=== PATIENT | male | born 1990 | race Caucasian/White ===

== ENCOUNTER → 2022-10-27 12:50 | Outpatient (BNVA) | payer MEDICAID, SELFPAY | PROVIDERS: PCP Family Medicine; Visit Provider Internal Medicine Gastroenterology | DX: R10.13 Epigastric pain (principal) | CPT/HCPCS: 99202 ==

== ENCOUNTER 2022-12-16 11:18 | Day surgery (SDC) | payer MEDICAID, SELFPAY ==
--- NOTE | 2022-12-15 10:35 | HO.ANESPROP2 ---
Documented by User: Nargis Shelby NP 12/15/22 10:36 HPI - Anesthesia Eval Consult details Narrative: 32yo M for Upper Endoscopy and Colonoscopy [facility] Active Problems Active Problems: All Active Problems (Updated 10/27/22 @ 13:30 by Nabila Lopez MD) Epigastric abdominal pain (Acute) Surgical History Surgical History Hx of amputation Hx of wisdom tooth extraction Social History Social History Alcohol intake: never Patient Tobacco Use Status: Former Tobacco user Quit Date: 5 years Tobacco use type: Smokeless Tobacco Use of substances other than those prescribed or required for medical reasons: No Substance Use Type: Marijuana Are you DNR?: No Advance Directives: No Advance Directives Information Provided: Yes Meds Allergies Allergy/AdvReac Type Severity Reaction Status Date / Time tree nuts Allergy Mild Unknown Uncoded 10/27/22 12:57 Home Medications Medication Instructions Recorded Confirmed Last Taken Type pantoprazole 40 mg tablet,delayed 40 mg PO DAILY 10/27/22 Unknown History release Exam Exam Date and Time: December 15, 2022 1035 Assessment and Plan Assessment Anesthesia Assessment: Chart Reviewed Documented by User: Tatyana Bolton MD 12/16/22 12:04 [facility] Family History Family history of problems with anesthesia: No Surgical History Surgical History Hx of amputation Hx of wisdom tooth extraction History of Problems with Anesthesia: No Social History Social History Alcohol intake: never Patient Tobacco Use Status: Former Tobacco user Quit Date: 5 years Tobacco use type: Smokeless Tobacco Use of substances other than those prescribed or required for medical reasons: No Substance Use Type: Marijuana Are you DNR?: No Advance Directives: No Advance Directives Information Provided: Yes Meds Allergies Allergy/AdvReac Type Severity Reaction Status Date / Time tree nuts Allergy Mild Unknown Uncoded 10/27/22 12:57 Home Medications Medication Instructions Recorded Confirmed Last Taken Type pantoprazole 40 mg tablet,delayed 40 mg PO DAILY 10/27/22 Unknown History release Exam Airway Mallampati Class: II TM Dist: >3cm Neck ROM: Full Heart: rrr Lungs: cta Assessment and Plan Assessment Anesthesia Assessment: Anesthesia Plan Discussed Final Anesthetic Review Family History of Problems with Anesthesia: No History of Problems with Anesthesia: No NPO: Yes ASA Class: III Final Preanesthetic Review: No Changes in Pt Med Stat, Meds/Allgs Chart Reviewed, Consent Obtained/Reviewed and Anes Risks/Benef Reviewed Patient Risk: Low Procedure Risk: Low Anesthetic Plan Anesthetic Plan: MAC: Disposition: Standard PACU
[2022-12-16 11:49] VITALS: BMI 30.4
[2022-12-16 11:59] VITALS: BP 108/74; PULSE 74; RESP 18; TEMP 36.7; O2SAT 97
[2022-12-16 12:06] VITALS: BMI 30.4
[2022-12-16] MEDS: Lactated Ringers 1,000 ML 100 ML IVCONT (12:09)
--- NOTE | 2022-12-16 12:24 | MHC.SHP ---
Pre-Procedural Eval Section A Date of Service: 12/16/22 Section B Chief Complaint: Crohn's disease,IBS,epigastric pain, Relevant Family History (Specify if Yes): No Relevant Social History: Other (specify) (THC) Present Medications: see Short Stay Collaborative assessment Medical History: Significant History (asthma) History of Previous Operations: Relevant previous surgery/procedure and date(s) (wisdom tooth extraction ) Allergies: Allergies Allergy/AdvReac Type Severity Reaction Status Date / Time tree nuts Allergy Mild Unknown Uncoded 10/27/22 12:57 Review of Systems Sugical H&P ROS: Negative: Constitution, Cardiovascular, Respiratory, Neurological, Psychiatric, Hem-Onc, Allergic/Immunologic, Gastrointestinal, Genitourinary, Musculoskeletal, Integumentary, Endocrine and Eyes/Ears/Nose/Throat Exam Surgical H&P Exam: Normal: HEENT, Normal: Heart, Normal: Lungs, Normal: Extremities, Normal: Abdomen, Normal: Skin and Normal: Neurological Plan Diagnosis/Plan: Unchanged I have reviewed the history and physical and performed a pertinent physical examination on my patient. No changes have occurred unless specified. Time Spent With Patient Time: Total time managing care of this patient today ____ minutes.
--- NOTE | 2022-12-16 12:33 | P.OP_ITS ---
Operative Note Operative Note Date of Service: 12/16/22 Narrative: Operative Information Procedure Description: EGD, Colonoscopy Indication: abdominal pain, nausea Anesthesia: MAC FLEXIBLE TRANSORAL UPPER GASTROINTESTINAL ENDOSCOPY AND COLONOSCOPY PROCEDURE NOTE UPPER ENDOSCOPY Consent: Indications for the procedure and potential complications of bleeding, perforation, reaction to medications and missed diagnosis were discussed with the patient and informed consent was obtained. Instrument: Olympus GIF H 190 J mid size upper endoscope Monitoring: Vital signs and clinical assessment, continuous EKG monitoring, Pulse oximetry, Carbon Dioxide monitoring and blood pressure monitoring were done throughout the procedure. Procedure: The patient was placed in the left lateral decubitis position and pre-procedure medications were administered and a bite block was placed. The endoscope was inserted into the mouth and advanced under direct vision to the third part of duodenum. A careful inspection was made as the upper endoscope was withdrawn including a retroflexed examination of the proximal stomach; Findings and interventions are described below. Findings: Larynx:normal Esophagus: GE junction at 45 cm, diaphragm hiatus at 45 cm, bogginess and erythema at GJE consistent with reflux damage, bx taken from GEJ, distal and proximal esophagus Stomach: Normal mucosa. Biopsies were obtained. Grade 2 flap valve on retroflexed examination of the cardia. Duodenum: Normal bulb and descending duodenum, bx taken Intervention: Biopsies as noted above COLONOSCOPY Instrument: Olympus variable stiffness pediatric scope 190L Colonoscopy Monitoring: Vital signs and clinical assessment, continuous EKG monitoring, Pulse oximetry, Carbon Dioxide monitoring and blood pressure monitoring were done throughout the procedure. Colon withdrawal time was 15 minutes. Procedure: The patient was placed in the left lateral decubitis position and pre-procedure medications were administered. After a digital rectal examination of the ano-rectum, the video colonoscope was inserted into the rectum and advanced through the colon to the cecum/TI. The colonoscope was slowly withdrawn in a retrograde panoramic fashion and the colon mucosa was carefully examined including a retroflexed view of the rectum. Findings and interventions are described below. Procedure Difficulty: medium Findings: Terminal Ileum-nodular follicular hyperplasia noted, bx taken bx taken from right, left and rectum --there was no colonic peristalsis noted Cecum:normal Ascending Colon: normal Transverse Colon -normal Descending Colon:normal Sigmoid Colon: normal Rectum: Retroflexion with medium sized internal hemorrhoids, grade I Anorectum - normal Colon preparation: [place] Bowel Preparation Scale Right colon; 2 Transverse colon: 3 Left colon; 3 (0 = Unprepared colon segment with mucosa not seen due to solid stool that cannot be cleared. 1 = Portion of mucosa of the colon segment seen, but other areas of the colon segment not well seen due to staining, residual stool and/or opaque liquid. 2 = Minor amount of residual staining, small fragments of stool and/or opaque liquid, but mucosa of colon segment seen well. 3 = Entire mucosa of colon segment seen well with no residual staining, small fragments of stool or opaque liquid) Impression and Post Procedure Diagnosis: Endoscopy Findings: esophagitis Colonoscopy Findings: colonic inertia internal hemorrhoids Plan: Await Pathology results Repeat Colonoscopy aged 45 or earlier if clinically indicated High fiber diet leaflet avoid straining at stool, epsom salts and sitz bath, anusol supps or cream consider using motegrity if sx more suggestive of colonic inertia Above findings were reviewed with the patient and relevant handouts were provided if indicated.
[2022-12-16 13:20] VITALS: BP 129/71; PULSE 58; RESP 20; TEMP 36.2; O2SAT 100
[2022-12-16 13:35] VITALS: BP 114/83; PULSE 52; RESP 18; TEMP 36.2; O2SAT 99
== END 2022-12-16 14:24 | disposition home or self-care (01) ==
PROVIDERS: PCP Student in an Organized Health Care Education/Training Program; Visit Provider Internal Medicine Gastroenterology
PROC: (CPT 45380; principal; 2022-12-16 14:10)
DX: K50.90 Crohn's disease, unspecified, without complications (principal); K63.89 Other specified diseases of intestine; K59.01 Slow transit constipation; K64.0 First degree hemorrhoids; R10.13 Epigastric pain; K20.80 Other esophagitis without bleeding; K44.9 Diaphragmatic hernia without obstruction or gangrene; Z79.899 Other long term (current) drug therapy; Z89.029 Acquired absence of unspecified finger(s); F17.210 Nicotine dependence, cigarettes, uncomplicated; F12.90 Cannabis use, unspecified, uncomplicated
CPT/HCPCS: 45380; 43239; 88305; 88342

== ENCOUNTER → 2022-12-16 11:18 | Outpatient (BNV) | payer MEDICAID, SELFPAY | PROVIDERS: PCP Student in an Organized Health Care Education/Training Program; Visit Provider Internal Medicine Gastroenterology | DX: R10.9 Unspecified abdominal pain (principal); R11.0 Nausea; K20.90 Esophagitis, unspecified without bleeding; K64.8 Other hemorrhoids; K59.01 Slow transit constipation | CPT/HCPCS: 43239; 45380 ==

== ENCOUNTER 2023-02-13 10:17 | Outpatient (AMB) | payer MEDICAID, SELFPAY ==
[2023-02-13 10:23] VITALS: BP 121/67; PULSE 79; BMI 26.6
--- NOTE | 2023-02-13 10:23 | A.OFFVIS_ITS ---
Intake Vital Signs 02/13/23 10:23 Height 6 ft 4 in Weight 218 lb 4.122 oz BMI 26.6 BP 121/67 Blood Pressure Location Lt brachial Position Sitting Pulse 79 Intake Visit Reasons: 4 mnth follow up Intake Note: Greg presents in the office as a 4 month follow up. CC: He states that he has been having some more stomach issues that he feels is leading to something else. He went to the ED for heart palpatations and at the end of the day he felt dizzy and weak but was told that nothing was wrong. His PCP thinks it may be Gastroenteritis and he would like to be tested for that. Also has concerns for his gall bladder. 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: No Allergies tree nuts Allergy (Mild, Uncoded 02/13/23 10:26) Unknown HPI 4 mnth follow up HPI Details 32 yr old m here for f/u RECAP from index visit: He had trouble eating food, unless v plain, anything oily or spicy gives him cramps he was c/o nausea, vomiting feels like someone trying to rip out insides pain can be 9/10 in severity pain is epigastrium, can go into the back and lower abdomen he has been having chest pain, went to ED several times, goes into the right side and worse with nausea attacks occur every day, doesn;t really go away he can have tenesmus and incomplete evacuation he conway sbeen taking pantoprazole for 6 weeks with some relif of symptoms--feels it has helped 60% can be associated with cold sweats symptoms going on for 9 yrs he had bad anxiety takes nsaids infrequently, 2-3 times week, ibuprofen he is vaping, using weed as well EGD/[place] --12/2022 Endoscopy Findings: esophagitis Colonoscopy Findings: colonic inertia internal hemorrhoids Path:lymphoid aggregates, reflux changes in esophagus INTERIM: he was in ED last week due to heart palpitations and had aversion to food for 1 week, appetite is improving but still getting palpitations he has a mild pain in the left chest, varies Stomach symptoms improved but maybe due to improved diet as well, taking pantoprazole 40 mg daily does not have vomiting he can have constipation, takes a while to pass stools he has tightness and constriction below the ribs, can be anytime EXAM: GENERAL: The patient is well developed and nontoxic. VITAL SIGNS:see workflow HEENT: Nonicteric sclerae, PERRLA, EOMI. Oropharynx clear. Moist mucous membranes. Conjunctivae appear well perfused. No thyroid mass. CHEST: Chest wall is nontender. HEART: Regular rate and rhythm without murmurs. LUNGS: Clear to auscultation bilaterally. ABDOMEN: Soft, positive bowel sounds, nontender, no organomegaly.no flank tenderness SKIN: No rash, no excessive bruising, petechiae, or purpura. NEUROLOGIC: Cranial nerves II-XII intact without motor/sensory deficit. A/P: 1/ Palpitaitons, uncertain if related to any of his GI issues, e.g POTS ot other dysautonomia 2/ Some improvement in GI sx with PPI an d diet change, but not 100% better, lymphoid aggregates on path ? subacute IBD PLAN: 1/ GES 2/ US abdo 3/ check fecal [place] and trial of apriso 4/ refer cardiology for symptomatic palp itations 5/ might consider trial of motegrity at some point and maybe sitz marker test [facility] Surgical History (Updated 02/13/23 @ 10:27 by DENTON Abdullahi) History of esophagogastroduodenoscopy (EGD) Hx of colonoscopy Hx of wisdom tooth extraction Hx of amputation Social History Alcohol intake: never Patient Tobacco Use Status: Former Tobacco user Quit Date: 5 years Tobacco use type: Smokeless Tobacco Substance Use Type: Marijuana Physical Exam Vital Signs: Last Vital Signs Pulse 79 02/13/23 10:23 BP 121/67 02/13/23 10:23 BMI result Body Mass Index 26.6 Assessment & Plan Assessment & Plan (1) Epigastric abdominal pain: Code(s): R10.13 - Epigastric pain (2) Palpitation: Code(s): R00.2 - Palpitations Orders: Orders NM gastric emptying study Today R68.81 - Early satiety Lactoferrin, Fecal, Quant. Today K51.50 - Left sided colitis without complications US abdomen complete Today R00.2 - Palpitations, R10.13 - Epigastric pain Referrals Cardiology Referral R00.2 - Palpitations, R10.13 - Epigastric pain Medications: New mesalamine ER (Apriso) 1.5 grams (4 x 0.375 gram) PO QAM 120 caps 0RF Coding Level of Care Code Est Pt Level 4 (68150) Diagnoses Epigastric abdominal pain R10.13 Palpitation R00.2
== END 2023-02-13 10:48 | disposition home or self-care (01) ==
PROVIDERS: PCP Family Medicine; Visit Provider Internal Medicine Gastroenterology
DX: R10.13 Epigastric pain (principal); R00.2 Palpitations
CPT/HCPCS: 99214

== ENCOUNTER → 2023-02-13 10:17 | Outpatient (BNVA) | payer MEDICAID, SELFPAY | PROVIDERS: PCP Family Medicine; Visit Provider Internal Medicine Gastroenterology | DX: R10.13 Epigastric pain (principal); R00.2 Palpitations | CPT/HCPCS: 99212 ==

== ENCOUNTER 2023-02-18 09:22 | Outpatient (REF) | payer MEDICAID, SELFPAY ==
[2023-02-25 17:14] LABS: Lactoferrin, Fecal, Quant. 15.45 mcg/mL (<7.25)
== END 2023-02-18 09:23 | disposition home or self-care (01) ==
LOC: HO.LNP 09:22
PROVIDERS: Visit Provider Internal Medicine Gastroenterology
DX: K51.50 Left sided colitis without complications (principal)
CPT/HCPCS: 83631

== ENCOUNTER → 2023-03-10 07:51 | Outpatient (REF) | payer MEDICAID, SELFPAY ==
--- NOTE | ~2023-03-10 | NM_ITS ---
EXAMINATION: RADIONUCLIDE SOLID FOOD GASTRIC EMPTYING 4-HOUR STUDY CLINICAL INFORMATION: Early satiety. COMPARISON: None. TECHNIQUE: A standard meal consisting of 4 oz of Egg Beaters brand tagged with 1 mCi Tc-99m Sulfur Colloid, 8 oz water and 2 slices of toast with jelly was administered orally to the patient. Images were obtained using a dual head gamma camera in the anterior and posterior projections over of the stomach immediately post ingestion and at hourly intervals up to 3 hours post ingestion. Images were not obtained at 4 hours due to the minimal retention at 3 hours. The anterior and posterior counts at each time interval were averaged using the geometric mean and expressed as percentage of the immediate post ingestion counts. FINDINGS: There is good visualization of activity in the stomach immediately post ingestion. As the study progresses, there is good clearance of activity from the stomach and visualization of progressively increasing small bowel activity. By the end of the study, there is almost no retention noted in the stomach. Retention in the stomach at each time interval was: 1 hour 44% (normal 37%-90%) 2 hours 24% (normal 30%-60%) 3 hours 8% 4 hours (Not Obtained) (normal 0%-10%) NM/NM gastric emptying study IMPRESSION: Normal solid food gastric emptying study.
== END ==
LOC: HO.NUCMED 07:51
PROVIDERS: PCP Family Medicine; Visit Provider Internal Medicine Gastroenterology
DX: R68.81 Early satiety (principal)
CPT/HCPCS: 78264; A9541

== ENCOUNTER 2023-03-13 08:50 | Outpatient (REF) | payer MEDICAID, SELFPAY ==
--- NOTE | ~2023-03-13 | US_ITS ---
EXAMINATION: US ABDOMEN COMPLETE CLINICAL INFORMATION: Epigastric pain. Rule out gallbladder disease. COMPARISON: None available. TECHNIQUE: Real-time imaging of the abdominal viscera. Limited visualization due to bowel gas. FINDINGS: PANCREAS: Limited visualization of pancreatic tail and head. Imaged portion of pancreatic body is unremarkable. ABDOMINAL AORTA: Nonaneurysmal. INFERIOR VENA CAVA: Visualized portions are normal. LIVER: Unremarkable. Limited visualization. GALLBLADDER: No gallstones. No gallbladder wall thickening. COMMON BILE DUCT: Normal in caliber measuring 0.25 cm in diameter. RIGHT KIDNEY: Mild fullness of the renal collecting system. No renal calculi. The kidney measures 11.8 cm in maximum dimension. LEFT KIDNEY: Mild fullness of the renal collecting system. No renal calculi. The kidney measures 11.7 cm in maximum dimension. SPLEEN: Normal. The spleen measures 12.6 cm in maximum dimension. FREE FLUID: None. US/US abdomen complete IMPRESSION: Mild fullness of the bilateral renal collecting systems. No renal calculi. CT scan could be considered for further evaluation.
== END 2023-03-13 08:51 | disposition home or self-care (01) ==
LOC: HO.US 08:50
PROVIDERS: PCP Family Medicine; Visit Provider Internal Medicine Gastroenterology
DX: R10.13 Epigastric pain (principal); R00.2 Palpitations
CPT/HCPCS: 76700

== ENCOUNTER 2023-06-16 07:24 | Outpatient (REF) | payer MEDICAID, SELFPAY ==
--- NOTE | ~2023-06-16 | CT_ITS ---
EXAMINATION: CT ABDOMEN AND PELVIS WITHOUT CONTRAST CLINICAL INFORMATION: Renal congestion. COMPARISON: Abdominal ultrasound 04/12/2023 TECHNIQUE: Multidetector volumetric imaging was performed of the abdomen and pelvis without intravenous contrast. Sagittal and coronal reformatted images were obtained on the technologist's workstation. This CT examination was performed using dose optimization techniques as appropriate, variously including the following: *Automated exposure control *Adjustment of mA and/or kV according to patient size (this includes techniques or standardized protocols for targeted exams where dose is matched to indication/reason for exam; i.e. extremities or head) *Use of iterative reconstruction technique DLP: 657.56 mGy-cm FINDINGS: LUNG BASES: The visualized lung bases are unremarkable. LIVER, GALLBLADDER, AND BILIARY TREE: The noncontrast liver is normal in size and contour. No biliary ductal dilatation is present. The gallbladder is unremarkable with no evidence of radiopaque gallstones, gallbladder wall thickening, or obvious pericholecystic inflammatory changes. PANCREAS: Unremarkable SPLEEN: Unremarkable ADRENAL GLANDS: Unremarkable KIDNEYS AND URETERS: The kidneys are normal in size, shape, and attenuation. Punctate nonobstructing mid pole right renal calculus. No hydronephrosis. No perinephric stranding. GASTROINTESTINAL TRACT: Small and large bowel loops are of normal caliber. No small bowel obstruction. Appendix is within normal limits. ABDOMINAL WALL: No significant hernia is appreciated. LYMPH NODES: Numerous subcentimeter mesenteric lymph nodes are nonspecific. VASCULAR: Normal caliber abdominal aorta. BLADDER: No bladder calculus. PELVIC VISCERA: Unremarkable. OSSEOUS STRUCTURES: No destructive bone lesions. CT/CT kidney stone IMPRESSION: Punctate nonobstructing right renal calculus. No hydronephrosis. Numerous subcentimeter mesenteric lymph nodes are nonspecific.
== END 2023-06-16 07:25 | disposition home or self-care (01) ==
LOC: HO.CT 07:24
PROVIDERS: PCP Family Medicine; Visit Provider Internal Medicine Gastroenterology
DX: N28.9 Disorder of kidney and ureter, unspecified (principal)
CPT/HCPCS: 74176

== ENCOUNTER 2023-06-18 15:54 | Outpatient (REF) | payer MEDICAID, SELFPAY | END 2023-06-18 15:55 | disposition home or self-care (01) | LOC: HO.LAB 15:54 | PROVIDERS: Visit Provider Internal Medicine Gastroenterology | DX: Z13.89 Encounter for screening for other disorder (principal) ==

== ENCOUNTER 2023-06-19 09:48 | Outpatient (AMB) | payer MEDICAID, SELFPAY ==
[2023-06-19 10:00] VITALS: BP 123/79; PULSE 98; BMI 29.9
--- NOTE | 2023-06-19 10:00 | A.OFFVIS_ITS ---
Intake Vital Signs 06/19/23 10:00 Height 6 ft 4 in Weight 246 lb BMI 29.9 BP 123/79 Blood Pressure Location Rt brachial Position Sitting Pulse 98 Pulse Source Monitor Intake Visit Reasons: 4 month follow up Intake Note: Patient states still having bloating when eating not healthy/ fried foods. No other GI concerns at the moment. 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 Accompanied by: Spouse Allergies fluoxetine [From Prozac] Allergy (Verified 06/19/23 10:07) Facial Swelling tree nuts Allergy (Mild, Uncoded 02/13/23 10:26) Unknown HPI 4 month follow up HPI Details 32 yr old m here for f/u RECAP from index visit: He had trouble eating food, unless v plain, anything oily or spicy gives him cramps he was c/o nausea, vomiting feels like someone trying to rip out insides pain can be 9/10 in severity pain is epigastrium, can go into the back and lower abdomen he has been having chest pain, went to ED several times, goes into the right side and worse with nausea attacks occur every day, doesn;t really go away he can have tenesmus and incomplete evacuation he con[place] sbeen taking pantoprazole for 6 weeks with some relif of symptoms--feels it has helped 60% can be associated with cold sweats symptoms going on for 9 yrs he had bad anxiety takes nsaids infrequently, 2-3 times week, ibuprofen he is vaping, using weed as well EGD/[place] --12/2022 Endoscopy Findings: esophagitis Colonoscopy Findings: colonic inertia internal hemorrhoids Path:lymphoid aggregates, reflux changes in esophagus GES: nml CT: small mesenteric LN, no obstruction INTERIM: he saw cardiology and had holter, results not back yet, has echo pending as well appetite fair he sees a difference with apriso, if doesnt take it he gets more cramps and bloating, he is trying to stop smoking, taking NRT taking pantoprazole 40 mg daily which still works constipation is better, avoids food triggers EXAM: GENERAL: The patient is well developed and nontoxic. VITAL SIGNS:see workflow HEENT: Nonicteric sclerae, PERRLA, EOMI. Oropharynx clear. Moist mucous membranes. Conjunctivae appear well perfused. No thyroid mass. CHEST: Chest wall is nontender. HEART: Regular rate and rhythm without murmurs. LUNGS: Clear to auscultation bilaterally. ABDOMEN: Soft, positive bowel sounds, nontender, no organomegaly.no flank tenderness SKIN: No rash, no excessive bruising, petechiae, or purpura. NEUROLOGIC: Cranial nerves II-XII intact without motor/sensory deficit. A/P: 1/ Palpitaitons, uncertain if related to any of his GI issues, seeing cardiology 2/ Some improvement in GI sx with PPI an d diet change and apriso, repeat lactoferrin pending , ? subacute IBD PLAN: 1/ await lactoferrin, if higher or worse then switch to budesonide, 2/ if lower then cont apriso and recheck again in 3 month or so 3/ cont smoking cessation PFSH Surgical History (Updated 02/13/23 @ 10:27 by DENTON Abdullahi) History of esophagogastroduodenoscopy (EGD) Hx of colonoscopy Hx of wisdom tooth extraction Hx of amputation Social History Alcohol intake: never Patient Tobacco Use Status: Former Tobacco user Quit Date: 5 years Tobacco use type: Smokeless Tobacco Substance Use Type: Marijuana Assessment & Plan Assessment & Plan (1) IBD (inflammatory bowel disease): Code(s): K52.9 - Noninfective gastroenteritis and colitis, unspecified Plan: A/P: 1/ Palpitaitons, uncertain if related to any of his GI issues, seeing cardiology 2/ Some improvement in GI sx with PPI and diet change and apriso, repeat lactoferrin pending , ? subacute IBD PLAN: 1/ await lactoferrin, if higher or worse then switch to budesonide, 2/ if lower then cont apriso and recheck again in 3 month or so 3/ cont smoking cessation Coding Level of Care Code Est Pt Level 3 (18769) Diagnoses IBD (inflammatory bowel disease) K52.9
== END 2023-06-19 10:34 | disposition home or self-care (01) ==
PROVIDERS: PCP Family Medicine; Visit Provider Internal Medicine Gastroenterology
DX: K52.9 Noninfective gastroenteritis and colitis, unspecified (principal)
CPT/HCPCS: 99213

== ENCOUNTER → 2023-06-19 09:48 | Outpatient (BNVA) | payer MEDICAID, SELFPAY | PROVIDERS: PCP Family Medicine; Visit Provider Internal Medicine Gastroenterology ==

== ENCOUNTER 2023-06-19 09:57 | Outpatient (REF) | payer MEDICAID, SELFPAY ==
[2023-06-27 17:39] LABS: Lactoferrin, Fecal, Quant. <6.25 mcg/mL (<7.25)
== END 2023-06-19 09:58 | disposition home or self-care (01) ==
LOC: HO.LNP 09:57
PROVIDERS: Visit Provider Internal Medicine Gastroenterology
DX: K51.50 Left sided colitis without complications (principal); K52.9 Noninfective gastroenteritis and colitis, unspecified
CPT/HCPCS: 83631; 99212

== ENCOUNTER 2023-12-18 09:50 | Outpatient (AMB) | payer BC, SELFPAY ==
--- NOTE | 2023-12-18 09:56 | A.OFFVIS_ITS ---
Vital Signs 12/18/23 10:01 Height 6 ft 4 in Weight 253 lb 1.451 oz BMI 30.8 BP 112/72 Blood Pressure Location Lt brachial Position Sitting Pulse 73 Pulse Source Pulse Oximeter Pulse Oximetry (%) 99 Oxygen Delivery Method Room Air Intake Visit Reasons: 6 month follow up Intake Note: Patient presents to the office today for a 6 month follow up. CC: Pt states he is feeling well and denies any concerns at this time Manager Cardiovascular Required: No Accompanied by: Spouse Allergies fluoxetine [From Prozac] Allergy (Verified 12/18/23 10:04) Facial Swelling tree nuts Allergy (Mild, Uncoded 12/18/23 10:04) Unknown HPI HPI 6 month follow up: Details: 33 yr old m here for f/u RECAP from index visit: He had trouble eating food, unless v plain, anything oily or spicy gives him cramps he was c/o nausea, vomiting feels like someone trying to rip out insides pain can be 9/10 in severity pain is epigastrium, can go into the back and lower abdomen he has been having chest pain, went to ED several times, goes into the right side and worse with nausea attacks occur every day, doesn;t really go away he can have tenesmus and incomplete evacuation he conway sbeen taking pantoprazole for 6 weeks with some relif of symptoms--feels it has helped 60% can be associated with cold sweats symptoms going on for 9 yrs he had bad anxiety takes nsaids infrequently, 2-3 times week, ibuprofen he is vaping, using weed as well EGD/Vaughn --12/2022 Endoscopy Findings: esophagitis Colonoscopy Findings: colonic inertia internal hemorrhoids Path:lymphoid aggregates, reflux changes in esophagus GES: nml CT: small mesenteric LN, no obstruction lactoferrin went from 15 to < 6.25! 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 VITAL SIGNS:see workflow HEENT: Nonicteric sclerae, PERRLA, EOMI. Oropharynx clear. Moist mucous membranes. Conjunctivae appear well perfused. No thyroid mass. CHEST: Chest wall is nontender. HEART: Regular rate and rhythm without murmurs. LUNGS: Clear to auscultation bilaterally. ABDOMEN: Soft, positive bowel sounds, nontender, no organomegaly.no flank tenderness SKIN: No rash, no excessive bruising, petechiae, or purpura. NEUROLOGIC: Cranial nerves II-XII intact without motor/sensory deficit. A/P 1/ subacute IBD, doing v well with mesalamine --will try lialda to see if easier to get and less expensive PLAN: 1/ sent lialda, hopefully will be cheaper, labs going to be done 2/letter given for jury duty due to abdominal symptoms 3/ periodic check on fecal lactoferrin PFSH Surgical History (Updated 02/13/23 @ 10:27 by DENTON Abdullahi) History of esophagogastroduodenoscopy (EGD) Hx of colonoscopy Hx of wisdom tooth extraction Hx of amputation Social History Alcohol intake: never Patient Tobacco Use Status: Former Tobacco user Tobacco use type: Smokeless Tobacco Substance Use Type: Marijuana Physical Exam Vital Signs: Last Vital Signs Pulse 73 12/18/23 10:01 BP 112/72 12/18/23 10:01 Pulse Ox 99 12/18/23 10:01 Oxygen Delivery Method Room Air 12/18/23 10:01 BMI result Body Mass Index 30.8 Assessment & Plan Assessment & Plan (1) IBD (inflammatory bowel disease): Code(s): K52.9 - Noninfective gastroenteritis and colitis, unspecified Category: Medical Plan: see above Medications: New mesalamine (Lialda) 2.4 grams (2 x 1.2 gram) PO DAILY 8 weeks 112 tabs 0RF Coding Level of Care Code Est Pt Level 3 (24683) Diagnoses IBD (inflammatory bowel disease) K52.9
[2023-12-18 10:01] VITALS: BP 112/72; PULSE 73; O2SAT 99; BMI 30.8
== END 2023-12-18 10:29 | disposition home or self-care (01) ==
PROVIDERS: PCP Family Medicine; Visit Provider Internal Medicine Gastroenterology
DX: K52.9 Noninfective gastroenteritis and colitis, unspecified (principal)
CPT/HCPCS: 99213

== ENCOUNTER → 2023-12-18 09:50 | Outpatient (BNVA) | payer BC, SELFPAY | PROVIDERS: PCP Family Medicine; Visit Provider Internal Medicine Gastroenterology ==

== ENCOUNTER 2024-06-24 09:23 | Outpatient (REF) | payer OTHER, SELFPAY ==
[2024-06-24 09:56] LABS: MANUAL DIFF FLAG NO
--- OUTSIDE RECORDS SUMMARY | 2024-06-24 10:01 | XMS_ITS | Encounter Summary ---
Author Organization [employer] Address [address] [facility] [address]t [place] [address] Care Team Providers Care Advanced Analytics Associate Name Role Phone Jon Baker PA-C Primary Care Provider [phone] Encounter Details Date Type Department Care Team (Late st Contact Info) Description 06/21/2024 Refill [id number] [address] [place] [phone] Jon Baker PA-C [address] [place] [address] Tobacco consumption Social History Tobacco Use Types Packs/Day Years Used Date Smoking Tobacco: Former Cigarettes 1.5 7 Smokeless Tobacco: Current Alcohol Use Standard Drinks/Week Comments Not Currently 0 (1 standard drink = 0.6 oz pur e alcohol) Housing Stability Answer Date Recorded What is your housing situation today? I have jean shipman 06/15/[address] you li ve. Do you have problems with any of the following? None of the above 06/15/2024 Food Insecurity Answer Date Recorded Within the past 12 months, y ou worried that your food would run out before you got money to buy more: Never True 06/15/2024 Within the past 12 months,th e food you bought just didn't last and you didn't have enough money to get more: Never True 04/2025 Transportation Answer Date Recorded In the past 12 months, has l ack of transportation kept you from medical appts, meetings, work or from getting things needed for daily living? No 06/15/2024 Intimate Partner Violence Answer Date R ecorded Within the last year, have y ou been afraid of your partner or ex-partner? 2 06/15/2024 Within the last year, have y ou been humiliated or emotionally abused in other ways by your partner or ex-partner? 2 Within the last year, have y ou been kicked, hit, slapped, or otherwise physically hurt by your partner or ex-partner? 2 06/15/2024 Within the last year, have y ou been raped or forced to have any kind of sexual activity by your partner or ex-partner? 2 06/15/2024 Utilities Answer Date Recorded In the past 12 months, has t he [employer], gas, oil or water [employer] threatened to shut off services in your home? No 06/15/2024 Depression Answer Date Recorded Patient Health Questionnaire-2 Score 0 06/15/2024 Internet Access Answer Date Recorded Internet Access Q1 Yes 02/08/2024 Internet Access Q2 Not on file 02/08/2024 Sex and Gender Information Value Date Recorded Sex Assigned at Male 07/28/2022 9:02 AM EDT Legal Sex Male 6:22 PM EDT Gender Identity Male 02/28/2022 6:22 PM EDT Sexual Orientation Straight 02/28/2022 6: 22 PM EDT Occupation Industry Job Start Date Job End Date Self Employed Not on file Not on file Not on file documented as of this encounter Miscellaneous Notes * Telephone Encounter - Milla Santacruz - 06/21/2024 4:11 PM EST PCP: Jon Baker PA-C Last in-person office visit: 06/15/2024 Jon Baker PA-C Lab Results Component Value Date BUN 15 08/22/2022 CREATININE 1.1 08/22/2022 EGFRCREATINI 92 08/22/2022 HGBA1C 5.2 08/22/2022 K 3.4 (L) 08/22/2022 Assessment: [x] Protocol passed [] Lab due [] Appointment due Plan: [x] Please refill for 30 days [] Lab [] BMP [] TSH [] A1C [] Appointment due: No future appointments. Comments: Pt is requesting the 14 mg patches since the 7 mg patches are not strong enough. * Telephone Encounter - Ese Sabrina - 06/21/2024 3:30 PM EST Patient would like 14 mg nicotine patches called into pharm documented in this encounter Plan of Treatment Not on file documented as of this encounter Visit Diagnoses Diagnosis Tobacco consumption documented in this encounter Care Teams Advanced Analytics Associate Relationship Specialty Start Date End Date Jon Baker PA-C [address] [place] [id number] PCP - General Family Medicine 03/05/23 documented as of this encounter
--- OUTSIDE RECORDS SUMMARY | 2024-06-24 10:01 | XMS_ITS | Clinical Summary ---
Author Organization [email or web address] Address [address] [place] [address] 7t [place] [address] Care Team Providers Care Field Application Engineer Name Role Phone Jon Baker PA-C Primary Care Provider [phone] Allergies Active Allergy Reactions Criticality Noted Date Comments Other Headache 12/29/2018 Other reaction(s): Hives, headache Cashew Nut Oil Headache 01/07/2023 Medications fluticasone (Flonase) 50 MCG/ACT nasal sprayIndications: Pressure sensation in both ears Administer 1-2 sprays into each nostril in the morning. Shake gently. Before first use, prime pump. After use, clean tip and replace cap. 16 g 2 023 Active hyoscyamine (Anaspaz) 0.125 MG disintegrating tablet DISSOLVE 1 TABLET ON THE TONGUE FOUR TIMES DAILY 023 Active predniSONE (Deltasone) 20 MG tabletIndications :Allergic contact dermatitis due to plant Take 2 tabs by mouth, every morning, for 5 days. 10 tablet 023 Active FLUoxetine (PROzac) 10 MG capsuleIndication s:Anxiety Take 1 capsule (10 mg) by mouth in the morning. 90 capsule 023 Active Apriso 0.375 g 24 hr capsule take 4 capsules by mouth every morning 024 Active pantoprazole (ProtoNix) 40 MG EC tabletIndications :RUQ pain TAKE 1 TABLET BY MOUTH EVERY DAY BEFORE BREAKFAST. DO NOT CRUSH OR CHEW OR SPLIT 90 tablet 2 025 Active nicotine (Nicoderm CQ) 14 MG/24HR patchIndications: Nicotine Dependence Place 1 patch on the skin 1 (one) time each day at the same time. Rotate sites. 28 patch 1 025 2024 Active nicotine (Nicoderm CQ) 14 MG/24HR patchIndications: Nicotine Dependence Place 1 patch on the skin 1 (one) time each day at the same time. Rotate sites. 28 patch 1 024 2024 Discontinued pantoprazole (ProtoNix) 40 MG EC tabletIndications :RUQ pain TAKE 1 TABLET(40 MG) BY MOUTH BEFORE BREAKFAST. DO NOT CRUSH, CHEW, OR SPLIT 90 tablet 2 024 2024 Discontinued nicotine (Nicoderm CQ) 7 MG/24HR patchIndications: Tobacco consumption Place 1 patch on the skin 1 (one) time each day at the same time. Rotate sites. 28 patch 1 025 2024 Discontinued(R eorder (will not trigger notification to Pharmacy)) nicotine (Nicoderm CQ) 7 MG/24HR patchIndications: Tobacco consumption Place 1 patch on the skin 1 (one) time each day at the same time. Rotate sites. 28 patch 1 025 2024 Discontinued Active Problems Problem Noted Date Diagnosed Date Right hand pain 06/15/2024 Assessment & Plan (06/15/2024 4:27 PM EST): 33 y/o adult presents with right 5th finger pain at MCP following an injury sustained about a month ago when hitting the inside handle of a truck door. Right hand dominant. Physical exam demonstrated erythema and edema at 5th finger MCP, difficulty with full flexion. - An X-ray of the hand is necessary to rule out a fracture. The results of the X-ray will guide further management, which may include referral to a hand specialist or conservative treatment. - In the meantime, the patient should continue taking ibuprofen as needed for pain management. Ice and elevation of the hand in the evening are recommended to help reduce swelling. - The patient should monitor for any changes in symptoms, such as increased pain, swelling, or changes in sensation Acute non-recurrent frontal sinusitis 02/08/2024 Assessment & Plan (02/08/2024 10:01 AM EDT): - Patient presented with symptoms of congestion, earache, sharp pain behind the eye. Symptoms have been ongoing for approximately four days, following a week of upper respiratory tract infection symptoms. Physical examination unremarkable. Given the duration of symptoms and the pattern of double worsening, a bacterial sinusitis is suspected. - Prescription of Augmentin for five days. Patient was advised to stop taking the medication if any hypersensitivity, rashes, or other side effects occur. Patient was also advised to continue supportive care with Tylenol as needed. An intranasal steroid was suggested to help with facial pressure and congestion, but the patient declined due to discomfort with nasal sprays. The patient was advised to contact the clinic if symptoms worsen or if high fevers develop. Patient expressed understanding and is in agreement with plan Palpitations 06/04/2023 Overview (06/04/2023): Established with Dr. Osman, Cardiology per notes: Palpitations: most likely isolated PVCs. Plan for zio patch Zio Patch Chest pain: Atypical by description and that it is right-sided, continuous, and pleuritic. Ischemic work up if sxs change. Dyspnea: Unlikely cardiac. TSH, EKG, and Hgb WNL. Plan for ECHO with additional sxs. Tobacco consumption 06/04/2023 Assessment & Plan (06/04/2023 8:34 AM EST): Reviewed best-practice guidelines for cessation with dual NRT with long-acting and short-acting formulations. Patient prefers to use just patches and no lozenges. Opted for 14mg patch via shared decision-making since this dosage helped the patient in the past. Will work to gradually down-titrate dose in 4-6 week increments as tolerated. Reviewed proper use, frequency, and possible side effects. Prescriptions sent to pharmacy. Pt will return in 1 month for follow up. Gastroesophageal reflux disease without esophagi tis 08/29/2022 Chronic abdominal pain 08/29/2022 Overview (06/04/2023): Established with Dr. Lopez in [facility] on 03/2023 demonstrated: Mild fullness of bilateral renal collecting systems. No renal calculi, needs CT for further evaluation. 10/2022: Gastric emptying study: Normal solid food gastric emptying. Endoscopy findings: Esophagitis Colonoscopy: Internal hernias and colonic inertia. Repeat at age 47 Temporomandibular joint disorder 02/07/2022 Fear associated with healthcare 08/20/2021 Encounters Date Type Department Care Team Description 06/21/2024 Orders Only [address] [phone] Jon Baker PA-Krystian Tobacco consumption 06/21/[address] [phone] Jon Baker PA-C Tobacco consumption 06/17/[address] [phone] Jon Baker PA-C RUQ pain 06/15/2024 3:40 PM EST Office Visit [address] [phone] Jon Baker PA-C Right hand pain (Primary Dx); Tobacco consumption 04/15/2024 10:40 AM EST Office Visit [address] [phone] Silvio Woods PA Community acquired pneumonia of right lower lobe of lung (Primary Dx) 04/12/[address] [phone] Jon Baker PA-Krystian from Last 3 Months Immunizations Name Administration Dates Next Due DTaP, Unspecified 11/21/1997, 4,04/15/1993,02/12/1993,12/11/18 93 Hep B, Unspecified 08/02/1993,1992, 993 HiB, unspecified 02/18/1994,04/15/1993, 3,1992 IPV 02/18/1994,07/02/1993,02/12/1993 ,1992 MMR 11/21/1997,10/29/1993 Td (adult), unspecified 12/27/2004 Tdap 12/01/2017,10/14/2016,08/22/2010 Family History Medical History Relation Name Comments Aneurysm Father GI problems Father Lung cancer Maternal Grandfather Breast cancer Maternal Grandmother Endometriosis Mother GI problems Mother Seizures Mother Mental illness Paternal Grandmother Relation Name Status Comments Father Maternal Grandfather Maternal Grandmother Mother Paternal Grandmother Social History Tobacco Use Types Packs/Day Years Used Date Smoking Tobacco: Former Cigarettes 1.5 7 Smokeless Tobacco: Current Tobacco Cessation:Ready to Q uit: Not Asked; Counseling Given: Not Answered Alcohol Use Standard Drinks/Week Comments Not Currently [...] the past 12 months, has t he electric, gas, oil or water company threatened to shut off services in your [...] file Not on file Not on file Last Filed Vital Signs Vital Sign Reading Time Taken Comments Blood Pressure 100/66 06/15/2024 4:02 PM EST Pulse 72 06/15/2024 4:02 PM EST Temperature 36.2 ??C (97.2 ??F) 06/15/2024 4:02 PM ES T Respiratory Rate - - Oxygen Saturation 99% 06/15/2024 4:02 PM EST Inhaled Oxygen Concentration - - Weight 106 kg (234 lb) 06/15/2024 4:02 PM EST Height 190.5 cm (6' 3 ) 02/19/2023 9:09 AM EDT Body Mass Index 29.25 02/19/2023 9:09 AM EDT Plan of Treatment Health Maintenance Due Date Last Done Comments HIV Screening 1992 Lipid Panel 1992 Alcohol/Substance Use Screening 2004 Family Planning (PISQ) 10/09/2007 Hepatitis C Screening 2010 COVID-19 Vaccine ( season) 2024 Influenza Vaccine (#1) 2024 Depression Screening 06/15/2025 06/15/2024, 06/15/19 SDOH Screening 06/15/2025 06/15/2024 Tobacco Screening 06/15/2025 06/15/2024 DTaP/Tdap/Td Vaccines (9 - Td or Tdap) 12/02/2027 12/01/2017, 10/14/2016, 08/22/2010, Additional history exists Zoster Vaccines (1 of 2) 2042 RSV Patients and Patients Aged 60 years or older (1 - 1-dose 75+ series) 10/09/2067 Hepatitis B Vaccines Completed 08/02/1993, 1992, 1992 HIB Vaccines Completed 02/18/1994, 04/03, 02/12/1993, Additional history exists IPV Vaccines Completed 02/18/1994, 03/0 05/1993, 02/12/1993, Additional history exists HPV Vaccines Aged Out No longer eligi ble based on patient's age to complete this topic Hepatitis A Vaccines Aged Out No long er eligible based on patient's age to complete this topic Meningococcal Vaccine Aged Out No austin daisha eligible based on patient's age to complete this topic Pneumococcal Vaccine: Pediatrics (0 to 5 Years) and At-Risk Patients (6 to 49) Years) Aged Out No longer eligible based on patient's age to complete this topic RSV under 20 months Aged Out No longe r eligible based on patient's age to complete this topic Rotavirus Vaccines Aged Out No longer eligible based on patient's age to complete this topic Procedures Procedure Name Priority Date/Time Associated Diagnosis Comments XR HAND 3+ VIEWS RIGHT Routine 06/15/2024 5:01 PM EST Right hand pain from Last 3 Months Results * XR Hand 3+ Views Right (06/15/2024 5:01 PM EST) Anatomical Region Laterality Modality Upper Extremities, Hand Right [facility] 06/15/2024 5:01 PM EST Narrative 06/16/2024 12:16 PM EST Hand Min 3 Views Right, 3 views Reason: right hand pain COMPARISON: None. FINDINGS: No fractures or bone lesions. 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 No arthritic changes. Normal soft tissues. IMPRESSION: No acute abnormality. WSN: [id number] Ordering Physician: Jon Baker Dictated By: ?Jean Pierre Colon MD Dictated Date/Time: ?06/16/24 12:13 p Reviewed By: ?Jean Pierre Colon MD Signed By: ? Jean Pierre Colon MD Signed Date/Time: ? 06/16/24 12:13 pm Transcribed By: ? CSB Transcribed Date/Time: ?06/16/24 12:12 pm Procedure Note Edwina, Image - 06/16/2024 Hand Min 3 Views Right, 3 views Reason: right hand pain COMPARISON: None. FINDINGS: No fractures or bone lesions. There has been prior amputation of thedistal phalanx of the index finger. No arthritic changes. Normal soft tissues. IMPRESSION: No acute abnormality. WSN: [id number] Ordering Physician: Jon Baker Dictated By: Jean Pierre Colon MD Dictated Date/Time: 06/16/24 12:13 p Reviewed By: Jean Pierre Colon MD Signed By: Jean Pierre Cooln MD Signed Date/Time: 06/16/24 12:13 pm Transcribed By: TREVON Transcribed Date/Time: 06/16/24 12:12 pm Jon Baker PA-C IMG XR PROCEDURES Final Result from Last 3 Months Insurance * Guarantor: Greg Perez Account Type Relation to Patient Date of Phone Billing Address Dental Self Care Teams Field Application Engineer Relationship Specialty Start Date End Date Jon Baker PA-C [address] [place] [address] PCP - General Family Medicine 03/05/23
--- OUTSIDE RECORDS SUMMARY | 2024-06-24 10:01 | XMS_ITS | Encounter Summary ---
Author Organization [employer] Address [address] [facility] 7t [place] [address] Care Team Providers Care Product Marketing Director Name Role Phone Jon Baker PA-C Primary Care Provider [phone] Encounter Details Date Type Department Care Team (Late st Contact Info) Description 06/21/2024 Orders Only [facility] [address] [place] [phone] Jon Baker PA-C [address] [place] [address] Tobacco consumption Social History Tobacco Use Types [...] the past 12 months, has t he [employer], gas, oil or water [employer] threatened to shut off services in your [...] on file documented as of this encounter Plan of Treatment Not on file documented as of this encounter Visit Diagnoses Diagnosis Tobacco consumption documented in this encounter Care Teams Product Marketing Director Relationship Specialty Start Date End Date Jon Baker PA-C [address] [place] [address] PCP - General Family Medicine 03/05/23 documented as of this encounter
--- OUTSIDE RECORDS SUMMARY | 2024-06-24 10:01 | XMS_ITS | Encounter Summary ---
Author Organization [employer] Address [address] [facility] [address]t [place] [address] Care Team Providers Care Clinical Education Assistant Name Role Phone Maurizio Martines Unavailable Unavail able Sophia White RN Unavailable Unavailable Jon Baker PA-C Primary Care Provider [phone] Encounter Details Date Type Department Care Team (Late st Contact Info) Description 03/17/2023 Abstract [facility] [address] [place] [phone] Jon Baker PA-C [address] [place] [address] Social History Tobacco Use Types Packs/Day Years Used Date Smoking Tobacco: Never Smokeless Tobacco: Current Alcohol Use Standard Drinks/Week Comments Not Currently 0 (1 standard drink = 0.6 oz pur e alcohol) Housing Stability Answer Date Recorded What is your housing situation today? I have jean shipman 02/16/[address] you li ve. Do you have problems with any of the following? None of the above 02/16/2023 Food Insecurity Answer Date Recorded Within the past 12 months, y ou worried that your food would run out before you got money to buy more: Never True 02/16/2023 Within the past 12 months,th e food you bought just didn't last and you didn't have enough money to get more: Never True Transportation Answer Date Recorded In the past 12 months, has l ack of transportation kept you from medical appts, meetings, work or from getting things needed for daily living? No 02/16/2023 Utilities Answer Date Recorded In the past 12 months, has t he electric, gas, oil or water company threatened to shut off services in your home? No 02/16/2023 Depression Answer Date Recorded Patient Health Questionnaire-2 Score 0 08/22/2022 Sex and Gender Information Value Date Recorded Sex Assigned at Male 07/28/2022 9:02 AM EDT Legal Sex Male 6:22 PM EDT Gender Identity Male 02/28/2022 6:22 PM EDT Sexual Orientation Straight 02/28/2022 6: 22 PM EDT documented as of this encounter Plan of Treatment Not on file documented as of this encounter Visit Diagnoses Not on filedocumented in this encounter Care Teams Clinical Education Assistant Relationship Specialty Start Date End Date Jon Baker PA-C [address] [place] [address] PCP - General Family Medicine 03/05/23 Maurizio Martines LICSW Community Health Worker Case Management 02/17/23 04/01/23 Sophia White, AMANDEEP Registered Nurse Case Management 02/24/23 05/27/23 documented as of this encounter
--- OUTSIDE RECORDS SUMMARY | 2024-06-24 10:01 | XMS_ITS | Encounter Summary ---
Author Organization [employer] Address [address] [facility] 7t [place] [address] Care Team Providers Care Annual Greenhouse Manager Name Role Phone Sherrie Alan Primary Care Provider [phone] Maurizio MartinesSW Unavailable Unavail able Jennifer Dover Primary Care Provider [phone] Sophia White RN Unavailable Unavailable Jon Baker PA-C Primary Care Provider [phone] Encounter Details Date Type Department Care Team (Late st Contact Info) Description 02/13/2023 Abstract [facility] [address] [place] [phone] Sherrie Alan FNP [address] [place] [address] Social History Tobacco Use Types Packs/Day Years [...] on filedocumented in this encounter Care Teams Annual Greenhouse Manager Relationship Specialty Start Date End Date Sherrie Alan FNP PCP - General Family Medicine 01/07/23 02/19/23 Jennifer Dover FNP [address] [place] [address] PCP - General Family Medicine 02/20/23 03/04/23 Jon Baker PA-C [address] [place] [address] PCP - General Family Medicine 03/05/23 Maurizio Martines [facility] Community Health Worker Case Management 02/17/23 04/01/23 Sophia White, RN Registered Nurse Case Management 02/24/23 05/27/23 documented as of this encounter
--- OUTSIDE RECORDS SUMMARY | 2024-06-24 10:01 | XMS_ITS | Encounter Summary ---
Author Organization [employer] Address [address] [facility] 7 [place] [address] Care Team Providers Care Assistant Sales Director Name Role Phone Sophia White RN Unavailable Unavailable Jon Baker PA-C Primary Care Provider [phone] Reason for Visit * Reason Comments Care Management C3-CHW Provider noti fication program closed. Encounter Details Date Type Department Care Team (Late st Contact Info) Description 04/13/2023 Telephone [facility] [address] [place] [address] Maurizio Martines LICSW Care Management (C3-CHW Provider notification program closed. ) Social History Tobacco Use Types Packs/Day Years [...] on filedocumented in this encounter Care Teams Assistant Sales Director Relationship Specialty Start Date End Date Jon Baker PA-C [address] [place] [address] PCP - General Family Medicine 03/05/23 Sophia White, RN Registered Nurse Case Management 02/24/23 05/27/23 documented as of this encounter
--- OUTSIDE RECORDS SUMMARY | 2024-06-24 10:01 | XMS_ITS | Encounter Summary ---
Author Organization [employer] Address [address] [facility] 7t [place] [address] Care Team Providers Care Hvac Controls Technician Name Role Phone Jon Baker PA-C Primary Care Provider [phone] Reason for Visit * Reason Comments Med Refill Encounter Details Date Type Department Care Team ([facility] st Contact Info) Description 06/17/2024 Refill [facility] [address] [place] [address] Jon Baker PA-C [address] [place] [address] RUQ pain Social History Tobacco Use Types Packs/Day Years [...] encounter Miscellaneous Notes * Telephone Encounter - Alejandra Luna - 06/17/2024 8:04 AM EST PCP: Jon Baker PA-C Last in-person office visit: 06/15/2024 Jon Baker PA-C Lab Results Component Value Date BUN 15 08/22/2022 CREATININE 1.1 08/22/2022 EGFRCREATINI 92 08/22/2022 HGBA1C 5.2 08/22/2022 K 3.4 (L) 08/22/2022 Assessment: [] Protocol passed [] Lab due [] Appointment due Plan: [] Please refill for 90 days [] Lab [] BMP [] TSH [] A1C [] Appointment due: No future appointments. Comments: documented in this encounter Plan of Treatment Not on file documented as of this encounter Visit Diagnoses Diagnosis RUQ pain Abdominal pain, right upper quadrant documented in this encounter Care Teams Hvac Controls Technician Relationship Specialty Start Date End Date Jon Baker PA-C [address] [place] [address] PCP - General Family Medicine 03/05/23 documented as of this encounter
--- OUTSIDE RECORDS SUMMARY | 2024-06-24 10:01 | XMS_ITS | Encounter Summary ---
Author Organization [employer] Address [address] [facility] 7t [place] [address] Care Team Providers Care Website Project Manager Name Role Phone Brittanie Martinesmukul HAND ROUNDER Unavailable Unavail able Jennifer Dover Primary Care Provider [phone] Sophia White RN Unavailable Unavailable Jon Baker PA-C Primary Care Provider [phone] Encounter Details Date Type Department Care Team (Late st Contact Info) Description 03/02/2023 Abstract [facility] [address] [facility] [address] [place] [phone] Jennifer Dover FNP [address] [place] [address] Social History Tobacco Use Types Packs/Day Years [...] on filedocumented in this encounter Care Teams Website Project Manager Relationship Specialty Start Date End Date Jennifer Dover FNP [address] [place] [address] PCP - General Family Medicine 02/20/23 03/04/23 Jon Baker PA-C [address] [place] [address] PCP - General Family Medicine 03/05/23 Maurizio Martines LICSW Community Health Worker Case Management 02/17/23 04/01/23 Sophia White, AMANDEEP Registered Nurse Case Management 02/24/23 05/27/23 documented as of this encounter
--- OUTSIDE RECORDS SUMMARY | 2024-06-24 10:01 | XMS_ITS | Encounter Summary ---
Author Organization [employer] Address [address] [place] [address] 7 [place] [address] Care Team Providers Care Meat Slicer Name Role Phone Jon Baker PA-C Primary Care Provider [phone] Reason for Referral * Imaging (Routine) - Closed Specialty Diagnoses / Procedures Referred By Samy t Referred To Contact Radiology Diagnoses Right hand pain Procedures XR Hand 3+ Views Right Jon Baker PA-C [address] [place] [address] Phone: tel: fax: Referral ID Status Reason Start Date Expiration Date Visits Re quested Visits Authorized [id number] Closed 06/15/2024 06/15/2025 1 1 Reason for Visit * Reason Comments Hand Injury Right pinky injury, hurt finger climbing into car. X1m getting pain in the knuckle still bruised Encounter Details Date Type Department Care Team (Late st Contact Info) Description 06/15/2024 3:40 PM EST Office Visit [facility] [address] [place] [phone] Jon Baker PA-C [address] [place] [phone] Right hand pain (Primary Dx); Tobacco consumption Social History Tobacco Use Types [...] on file documented as of this encounter Last Filed Vital Signs Vital Sign Reading Time Taken Comments Blood Pressure 100/66 06/15/2024 4:02 PM EST Pulse 72 06/15/2024 4:02 PM EST Temperature 36.2 ??C (97.2 ??F) 06/15/2024 4:02 PM ES T Respiratory Rate - - Oxygen Saturation 99% 06/15/2024 4:02 PM EST Inhaled Oxygen Concentration - - Weight 106 kg (234 lb) 06/15/2024 4:02 PM EST Height - - Body Mass Index 29.25 02/19/2023 9:09 AM EDT documented in this encounter Progress Notes * Jon Baker PA-C - 06/15/2024 3:40 PM EST This visit documentation was prepared using voice-enabled artificial intelligence software (hoccerclinical notes). Assessment/Plan Problem List Items Addressed This Visit Tobacco consumption Relevant Medications nicotine (Nicoderm CQ) 7 MG/24HR patch Right hand pain - Primary Current Assessment & Plan 33 y/o adult presents with right 5th finger pain at MCP following an injury sustained about a monthago when hitting the inside handle of a truck door. Right hand dominant. Physical exam demonstratederythema and edema at 5th finger MCP, difficulty [...] increased pain, swelling, or changes in sensation Relevant Orders XR Hand 3+ Views Right No follow-ups on file. No future appointments. Subjective Greg Perez is a 33 y.o. male who presents for Hand Injury (Right pinky injury, hurt finger climbing into car. X1m getting pain in the knuckle still bruised). Patient is a 33 y/o adult that presents today for right hand pain. The patient reported injuring their right hand pinky finger about a month ago while climbing into their truck. They described hitting the inside handle of the door with their hand, which resulted in a significant bruise across the knuckle. Since the injury, they have experienced a shooting pain in the joint whenever the finger is bent or bumped. The pain is localized to the knuckle area, although it occasionally extends slightlybeyond this region. The patient initially suspected a dislocation due to their past experiences with finger dislocations, but they noted that the pain persists, leading them to seek medical evaluation. They have not experienced any numbness or tingling in the fingers, nor have they noticed any decrease in underwriting service representative strength. The pain tends to worsen when the finger is bumped or bent too far, and thereis some limitation in the range of motion, particularly when trying to flex or extend the finger. They have taken ibuprofen with mild improvements in pain. They are right hand dominant. Objective BP 100/66 (BP Location: Right arm, Patient Position: Sitting, BP Cuff Size: Large adult) Pulse 72 Temp 97.2 ??F (36.2 ??C) (Temporal) Wt 234 lb (106 kg) SpO2 99% BMI 29.25 kg/m?? Physical Exam Constitutional: Appearance: Normal appearance. Eyes: Extraocular Movements: Extraocular movements intact. Conjunctiva/sclera: Conjunctivae normal. Musculoskeletal: Comments: Right hand: Mild edema and erythema noted at dorsal aspect of MCP at base of 5th finger, difficulty with flexion of 5th finger, underwriting service representative strength and sensation intact, brisk, non-tender with light palpation Skin: General: Skin is warm and dry. Neurological: General: No focal deficit present. Mental Status: He is alert and oriented to person, place, and time. Psychiatric: Mood and Affect: Mood normal. Behavior: Behavior normal. documented in this encounter Miscellaneous Notes * Assessment & Plan Note - Jon Baker PA-C - 06/15/2024 4:27 PM ESTAssociated Problem(s): Right hand pain 33 y/o adult presents with right 5th finger pain at MCP following an injury sustained about a monthago when hitting the inside handle of a truck door. Right hand dominant. Physical exam demonstratederythema and edema at 5th finger MCP, difficulty [...] increased pain, swelling, or changes in sensation documented in this encounter Plan of Treatment Not on file documented as of this encounter Procedures Procedure Name Priority Date/Time Associated Diagnosis Comments XR HAND 3+ VIEWS RIGHT Routine 06/15/2024 5:01 PM EST Right hand pain documented in this encounter Results * XR Hand 3+ Views Right (06/15/2024 5:01 PM EST) Anatomical Region Laterality Modality Upper Extremities, Hand Right Radiogra phic Imaging 06/15/2024 5:01 PM EST Narrative 06/16/2024 12:16 PM EST Hand Min 3 Views Right, 3 views Reason: right hand pain COMPARISON: None. FINDINGS: No fractures or bone lesions. 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 No arthritic changes. Normal soft tissues. IMPRESSION: No acute abnormality. WSN: [id number] Ordering Physician: Jon Baker Dictated By: ?Jean Pierre Colon MD Dictated Date/Time: ?06/16/24 12:13 p Reviewed By: ?Jean Pierre Colon MD Signed By: ? Jean Pierre Colon MD Signed Date/Time: ? 06/16/24 12:13 pm Transcribed By: ? CSB Transcribed Date/Time: ?06/16/24 12:12 pm Procedure Note Donotvietinterpreter, Image - 06/16/2024 Hand Min 3 Views Right, 3 views Reason: right hand pain COMPARISON: None. FINDINGS: No fractures or bone lesions. There has been prior amputation of thedistal phalanx of the index finger. No arthritic changes. Normal soft tissues. IMPRESSION: No acute abnormality. WSN: [id number] Ordering Physician: Jon Baker Dictated By: Jean Pierre Colon MD Dictated Date/Time: 06/16/24 12:13 p Reviewed By: Jean Pierre Colon MD Signed By: Jean Pierre Colon MD Signed Date/Time: 06/16/24 12:13 pm Transcribed By: TREVON Transcribed Date/Time: 06/16/24 12:12 pm Jon Baker PA-C IMG XR PROCEDURES Final Result documented in this encounter Visit Diagnoses Diagnosis Right hand pain- Primary Pain in soft tissues of limb Tobacco consumption documented in this encounter Care Teams Meat Slicer Relationship Specialty Start Date End Date Jon Baker PA-C [address] [place] [address] PCP - General Family Medicine 03/05/23 documented as of this encounter
--- OUTSIDE RECORDS SUMMARY | 2024-06-24 10:01 | XMS_ITS | Encounter Summary ---
Author Organization [employer] [facility] Address [address] [place] [address] Care Team Providers Care Senior Cost Accountant Name Role Phone Hunter Bruce DDS Primary Care Provider Sherrie Alan Primary Care Provider [phone] Maurizio MartinesSW Unavailable Unavail able Jennifer Dover Primary Care Provider [phone] Sophia White RN Unavailable Unavailable Jon Baker PA-C Primary Care Provider [phone] Encounter Details Date Type Department Care Team (Latest Contact Info) Description 01/17/2019 Abstract [facility] Dental, Provider, DDS Social History Tobacco Use Types Packs/Day Years Used Date Smoking Tobacco: Never Assessed Sex and Gender Information Value Date Recorded Sex Assigned at Male 07/28/2022 9:02 AM EDT Legal Sex Male 6:22 PM EDT Gender Identity Male 02/28/2022 6:22 PM EDT Sexual Orientation Straight 02/28/2022 6: 22 PM EDT documented as of this encounter Plan of Treatment Not on file documented as of this encounter Visit Diagnoses Not on filedocumented in this encounter Care Teams Senior Cost Accountant Relationship Specialty Start Date End Date Hunter Bruce DDS [address] [place] [address] PCP - General Dentist 02/28/22 01/06/23 Sherrie Alan FNP [address] [place] [address] PCP - General Family Medicine 01/07/23 02/19/23 Jennifer Dover FNP [address] [place] [address] PCP - General Family Medicine 02/20/23 03/04/23 Jon Baker PA-C [address] [place] [address] PCP - General Family Medicine 03/05/23 Maurizio Martines MASTER DYER Community Health Worker Case Management 02/17/23 04/01/23 Sophia White, RN Registered Nurse Case Management 02/24/23 05/27/23 documented as of this encounter
[2024-06-24 10:33] LABS: Basophils Percent Auto 0.3 % (0-2); Eosinophils Absolute Auto 0.1 X10*3/uL (0.0-0.4); Hematocrit 44.3 % (42.0-52.0); Hemoglobin 14.8 g/dl (14.0-18.0); Imm Gran Abs Auto 0.01 X10*3/uL (0.00-0.03); Imm Gran Pct Auto 0.1 % (0.0-0.4); Lymphocytes Absolute Auto 2.8 X10*3/uL (1.2-4.9); Mean Corpuscular HGB Conc 33.4 g/dl (31.0-36.0); Mean Corpuscular Volume 89.9 fL (80.0-98.0); Mean Platelet Volume 10.4 fL (9.4-12.4); Monocytes Absolute Auto 0.3 X10*3/uL (0.1-1.2); Monocytes Percent Auto 4.3 % (2-11); Neutrophils Absolute Auto 4.6 x10*3/uL (2.0-8.3); Neutrophils Percent Auto 58.3 % (45-73); Platelet Count 205 X10*3/uL (160-400); Red Blood Count 4.93 X10*6/uL (4.60-5.80); Red Cell Distribution Width 13.1 % (11.0-16.0); White Blood Count 7.8 X10*3/uL (4.8-10.8)
[2024-06-24 11:21] LABS: Alanine Aminotransferase 21 U/L (0-40); Albumin Level 4.5 g/dL (3.5-5.0); Alkaline Phosphatase 80 U/L (39-117); Anion Gap 11 (12-20); Aspartate Amino Transferase 22 U/L (5-37); Bilirubin Total 0.7 mg/dL (0.0-1.0); Blood Urea Nitrogen 13 mg/dL (9-16); C Reactive Protein < 0.10 mg/dL (< or = 0.50); Calcium 9.6 mg/dL (8.4-10.2); Carbon Dioxide 27 mmol/L (22-29); Chloride 107 mmol/L (96-108); Estimated Glomerular Filt Rate > 60; Glucose Random 92 mg/dL (60-115); Potassium 4.1 mmol/L (3.3-5.1); Sodium 141 mmol/L (135-145); Total Protein 7.8 g/dL (6.5-8.0)
[2024-06-24 11:23] LABS: Ferritin 147 ng/mL (20-250)
== END 2024-06-24 09:24 | disposition home or self-care (01) ==
LOC: HO.LAB 09:23
PROVIDERS: PCP Family Medicine; Visit Provider Internal Medicine Gastroenterology
DX: K52.9 Noninfective gastroenteritis and colitis, unspecified (principal); K75.81 Nonalcoholic steatohepatitis (NASH)
CPT/HCPCS: 36415; 80053; 82728; 85025; 86140

== ENCOUNTER 2024-06-24 09:58 | Outpatient (AMB) | payer OTHER, SELFPAY ==
--- NOTE | 2024-06-24 10:13 | A.OFFVIS_ITS ---
Vital Signs 06/24/24 10:14 Height 6 ft 4 in Weight 233 lb 11.04 oz BMI 28.4 BP 111/73 Blood Pressure Location Lt brachial Position Sitting Pulse 63 Intake Visit Reasons: 6 months follow up Intake Note: Greg presents in the office as a 6 month follow up. CC: He states that he is not having any concerns just having a follow up today! Allergies fluoxetine [From Prozac] Allergy (Verified 06/24/24 10:28) Facial Swelling tree nuts Allergy (Mild, Uncoded 06/24/24 10:28) Unknown HPI HPI 6 months follow up: Details: 33 yr old m here for f/u RECAP from index visit: He had trouble eating food, unless v plain, anything oily or spicy gives him cramps he was c/o nausea, vomiting feels like someone trying to rip out insides pain can be 9/10 in severity pain is epigastrium, can go into the back and lower abdomen he has been having chest pain, went to ED several times, goes into the right side and worse with nausea attacks occur every day, doesn;t really go away he can have tenesmus and incomplete evacuation he conway sbeen taking pantoprazole for 6 weeks with some relif of symptoms--feels it has helped 60% can be associated with cold sweats symptoms going on for 9 yrs he had bad anxiety takes nsaids infrequently, 2-3 times week, ibuprofen he is vaping, using weed as well EGD/[place] --12/2022 Endoscopy Findings: esophagitis Colonoscopy Findings: colonic inertia internal hemorrhoids Path:lymphoid aggregates, reflux changes in esophagus GES: nml CT: small mesenteric LN, no obstruction lactoferrin went from 15 to < 6.25! INTERIM: he is doing well with lialda it is cheaper no abdominal pain trying to stop smoking needs more fiber in diet EXAM: GENERAL: The patient is well developed and nontoxic. VITAL SIGNS:see workflow HEENT: Nonicteric sclerae, PERRLA, EOMI. Oropharynx clear. Moist mucous membranes. Conjunctivae appear well perfused. No thyroid mass. CHEST: Chest wall is nontender. HEART: Regular rate and rhythm without murmurs. LUNGS: Clear to auscultation bilaterally. ABDOMEN: Soft, positive bowel sounds, nontender, no organomegaly.no flank tenderness SKIN: No rash, no excessive bruising, petechiae, or purpura. NEUROLOGIC: Cranial nerves II-XII intact without motor/sensory deficit. A/P 1/ subacute IBD, doing v well with mesalamine --doing well lialda to see if easier to get and less expensive PLAN: 1/ cont lialda, 2/ periodic check on fecal lactoferrin and labs PFSH Surgical History (Updated 02/13/23 @ 10:27 by DENTON Abdullahi) History of esophagogastroduodenoscopy (EGD) Hx of colonoscopy Hx of wisdom tooth extraction Hx of amputation Social History Alcohol intake: never Patient Tobacco Use Status: Former Tobacco user Tobacco use type: Smokeless Tobacco Substance Use Type: Marijuana Assessment & Plan Assessment & Plan (1) IBD (inflammatory bowel disease): Code(s): K52.9 - Noninfective gastroenteritis and colitis, unspecified Category: Medical Plan: as above Coding Level of Care Code Est Pt Level 3 (36514) Diagnoses IBD (inflammatory bowel disease) K52.9
[2024-06-24 10:14] VITALS: BP 111/73; PULSE 63; BMI 28.4
--- OUTSIDE RECORDS SUMMARY | 2024-06-24 10:40 | XMS_ITS | Encounter Summary ---
Author Organization [employer] [facility] Address [address] [place] [address] Care Team Providers Care Repair Tech Name Role Phone Hunter Bruce DDS Primary Care Provider [phone] Sherrie Alan Primary Care Provider [phone] Maurizio MartinesSW Unavailable Unavail able Jennifer Dover Primary Care Provider [phone] Sophia White RN Unavailable Unavailable Jon Baker PA-C Primary Care Provider [phone] Encounter Details Date Type Department Care Team (Latest Contact Info) Description 01/17/2019 [facility], Provider, DDS Social History Tobacco [...] on filedocumented in this encounter Care Teams Repair Tech Relationship Specialty Start Date End Date Hunter Bruce DDS [address] [place] [address] PCP - General Dentist 02/28/22 01/06/23 Sherrie Alan FNP [address] [place] [address] PCP - General Family Medicine 01/07/23 02/19/23 Jennifer Dover FNP [address] [place] [address] PCP - General Family Medicine 02/20/23 03/04/23 Jon Baker PA-C [address] [place] [address] PCP - General Family Medicine 03/05/23 Maurizio Martines UTILITY SYSTEM REPAIRER Community Health Worker Case Management 02/17/23 04/01/23 Sophia White, RN Registered Nurse Case Management 02/24/23 05/27/23 documented as of this encounter
--- OUTSIDE RECORDS SUMMARY | 2024-06-24 10:40 | XMS_ITS | Clinical Summary ---
Author Organization [employer] Address [address] [place] [address] 7t [place] [address] Care Team Providers Care Bladder Trimmer Name Role Phone Jon Baker PA-C Primary Care Provider [phone] Allergies Active Allergy Reactions Criticality Noted Date [...] Overview (06/04/2023): Established with Dr. Lopez in [facility] on 03/2023 demonstrated: Mild fullness of bilateral renal collecting systems. No renal calculi, needs CT for further evaluation. 10/2022: Gastric emptying study: Normal solid food gastric emptying. Endoscopy findings: Esophagitis Colonoscopy: Internal hernias and colonic inertia. Repeat at age 47 Temporomandibular joint disorder 02/07/2022 Fear associated with healthcare 08/20/2021 Encounters Date Type Department Care Team Description 06/21/2024 Orders Only [address] [phone] Jon Baker PA-Krystian Tobacco consumption 06/21/[address] [phone] Jon Baker PA-C Tobacco consumption 06/17/[address] [phone] Jon Baker PA-C RUQ pain 06/15/2024 3:40 PM EST Office Visit [address] [phone] Jon Baker PA-C Right hand pain (Primary Dx); Tobacco consumption 04/15/2024 10:40 AM EST Office Visit [address] [phone] Silvio Woods PA Community acquired pneumonia of right lower lobe of lung (Primary Dx) 04/12/[address] [phone] Jon Baker PA-Krystian from Last 3 Months [...] Laterality Modality Upper Extremities, Hand Right [facility] 06/15/2024 5:01 PM EST Narrative 06/16/2024 12:16 PM EST Hand Min 3 Views Right, 3 views Reason: right hand pain COMPARISON: None. FINDINGS: No fractures or bone lesions. 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 No arthritic changes. Normal soft tissues. IMPRESSION: No acute abnormality. WSN: [id number] Ordering Physician: Jon Baker Dictated By: ?Jean [...] soft tissues. IMPRESSION: No acute abnormality. WSN: [id number] Ordering Physician: Jon Baker Dictated By: Jean [...] Phone Billing Address Dental Self Care Teams Bladder Trimmer Relationship Specialty Start Date End Date Jon Baker PA-C [address] [place] [address] PCP - General Family Medicine 03/05/23
--- OUTSIDE RECORDS SUMMARY | 2024-06-24 10:40 | XMS_ITS | Encounter Summary ---
Author Organization [employer] Address [address] [facility] 7t [place] [address] Care Team Providers Care Pressing Department Supervisor Name Role Phone Jon Baker PA-C Primary Care Provider [phone] Encounter Details Date Type Department Care Team (Late st Contact Info) Description 06/21[facility] [address] [place] [phone] Jon Baker PA-C [address] [place] [address] Tobacco consumption Social History Tobacco Use Types [...] the past 12 months, has t he [employer], gas, oil or water [employer] threatened to shut off services in your [...] consumption documented in this encounter Care Teams Pressing Department Supervisor Relationship Specialty Start Date End Date Jon Baker PA-C [address] [place] [address] PCP - General Family Medicine 03/05/23 documented as of this encounter
--- OUTSIDE RECORDS SUMMARY | 2024-06-24 10:40 | XMS_ITS | Encounter Summary ---
Author Organization [employer] Address [address] [facility] 7t [place] [address] Care Team Providers Care Block Layer Name Role Phone Jon Baker PA-C Primary Care Provider [phone] Encounter Details Date Type Department Care Team (Late st Contact Info) Description 06/21/2024 [facility] [address] [place] [phone] Jon Baker PA-C [address] [place] [address] Tobacco consumption Social History Tobacco Use Types [...] the past 12 months, has t he [employer], gas, oil or water [employer] threatened to shut off services in your [...] consumption documented in this encounter Care Teams Block Layer Relationship Specialty Start Date End Date Jon Baker PA-C [address] [place] [address] PCP - General Family Medicine 03/05/23 documented as of this encounter
--- OUTSIDE RECORDS SUMMARY | 2024-06-24 10:40 | XMS_ITS | Encounter Summary ---
Author Organization [employer] Address [address] [facility] 7t [place] [address] Care Team Providers Care Child Welfare Worker Name Role Phone Jon Baker PA-C Primary Care Provider [phone] Reason for Visit * Reason Comments Med Refill Encounter Details Date Type Department Care Team ([facility] st Contact Info) Description 06/17/2024 [facility] [address] [place] [address] Jon Baker PA-C [address] [place] [address] RUQ pain Social History Tobacco Use Types [...] quadrant documented in this encounter Care Teams Child Welfare Worker Relationship Specialty Start Date End Date Jon Baker PA-C [address] [place] [address] PCP - General Family Medicine 03/05/23 documented as of this encounter
--- OUTSIDE RECORDS SUMMARY | 2024-06-24 10:40 | XMS_ITS | Encounter Summary ---
Author Organization [employer] Address [address] [facility] 7t [place] [address] Care Team Providers Care Senior Network Architect Name Role Phone Sherrie Alan Primary Care Provider [phone] Maurizio MartinesSW Unavailable Unavail able Jennifer Dover Primary Care Provider [phone] Sophia White RN Unavailable Unavailable Jon Baker PA-C Primary Care Provider [phone] Encounter Details Date Type Department Care Team (Late st Contact Info) Description 02/13/2023 Abstract [facility] [address] [place] [address] Sherrie Alan FNP [address] [place] [address] Social History Tobacco Use Types Packs/Day [...] filedocumented in this encounter Care Teams Senior Network Architect Relationship Specialty Start Date End Date Sherrie Alan FNP PCP - General Family Medicine 01/07/23 02/19/23 Jennifer Dover FNP [address] [place] [address] PCP - General Family Medicine 02/20/23 03/04/23 Jon Baker PA-C [address] [place] [address] PCP - General Family Medicine 03/05/23 Maurizio Martines [facility] Community Health Worker Case Management 02/17/23 04/01/23 Sophia White, RN Registered Nurse Case Management 02/24/23 05/27/23 documented as of this encounter
--- OUTSIDE RECORDS SUMMARY | 2024-06-24 10:40 | XMS_ITS | Encounter Summary ---
Author Organization [employer] Address [address] [facility] 7 [place] [address] Care Team Providers Care Business English Instructor Name Role Phone Spohia White RN Unavailable Unavailable Jon Baker PA-C Primary Care Provider Reason for Visit * Reason Comments Care Management [id number] Provider noti fication program closed. Encounter Details Date Type Department Care Team (Late st Contact Info) Description 04/13/2023 Telephone [facility] [address] [place] [address] Maurizio Martines LICSW Care Management [...] on filedocumented in this encounter Care Teams Business English Instructor Relationship Specialty Start Date End Date Jon Baker PA-C [address] [place] [address] PCP - General Family Medicine 03/05/23 Sophia White, RN Registered Nurse Case Management 02/24/23 05/27/23 documented as of this encounter
--- OUTSIDE RECORDS SUMMARY | 2024-06-24 10:40 | XMS_ITS | Encounter Summary ---
Author Organization [employer] Address [address] [facility] 7t [place] [address] Care Team Providers Care Rack Worker Name Role Phone Brittanie Martinesmukul TITLE SUPERVISOR Unavailable Unavail able Jennifer Dover Primary Care Provider [phone] Sophia White RN Unavailable Unavailable Jon Baker PA-C Primary Care Provider [phone] Encounter Details Date Type Department Care Team (Late st Contact Info) Description 03/02/[address] [facility] [address] [facility] [address] [place] [phone] Jennifer Dover FNP [address] [place] [address] Social History Tobacco Use Types Packs/Day Years [...] on filedocumented in this encounter Care Teams Rack Worker Relationship Specialty Start Date End Date Jennifer Dover FNP [address] [place] [phone] PCP - General Family Medicine 02/20/23 03/04/23 Jon Baker PA-C [address] [place] [id number] PCP - General Family Medicine 03/05/23 Maurizio Martines LICSW Community Health Worker Case Management 02/17/23 04/01/23 Sophia White, AMANDEEP Registered Nurse Case Management 02/24/23 05/27/23 documented as of this encounter
--- OUTSIDE RECORDS SUMMARY | 2024-06-24 10:40 | XMS_ITS | Encounter Summary ---
Author Organization [employer] Address [address] [facility] 7t [place] [address] Care Team Providers Care Marketing Communication Manager Name Role Phone Maurizio Martines Unavailable Unavail able Sophia White RN Unavailable Unavailable Jon Baker PA-C Primary Care Provider [phone] Encounter Details Date Type Department Care Team (Late st Contact Info) Description 03/17/2023 Abstract [facility] [address] [place] [phone] Jon Baker PA-C [address] [place] [address] Social History Tobacco Use Types Packs/Day Years [...] on filedocumented in this encounter Care Teams Marketing Communication Manager Relationship Specialty Start Date End Date Jon Baker PA-C [address] [place] [address] PCP - General Family Medicine 03/05/23 Maurizio Martines LICSW Community Health Worker Case Management 02/17/23 04/01/23 Sophia White, AMANDEEP Registered Nurse Case Management 02/24/23 05/27/23 documented as of this encounter
--- OUTSIDE RECORDS SUMMARY | 2024-06-24 10:40 | XMS_ITS | Encounter Summary ---
Author Organization [employer] Address [address] [place] [address] 7 [place] [address] Care Team Providers Care A And P Mechanic Name Role Phone Jon Baker PA-C Primary Care Provider [phone] Reason for Referral * Imaging (Routine) - Closed Specialty Diagnoses / Procedures Referred By Samy t Referred To Contact Radiology Diagnoses Right hand pain Procedures XR Hand 3+ Views Right Jon Baker PA-C [address] [place] [address] Phone: tel: fax: Referral ID Status Reason Start Date Expiration Date Visits Re quested Visits Authorized [id number] Closed 06/15/2024 06/15/2025 1 1 Reason for Visit * Reason Comments Hand Injury Right pinky injury, hurt finger climbing into car. X1m getting pain in the knuckle still bruised Encounter Details Date Type Department Care Team (Late st Contact Info) Description 06/15/2024 3:40 PM EST Office Visit [facility] [address] [place] [phone] Jon Baker PA-C [address] [place] [phone] Right hand pain (Primary Dx); Tobacco consumption [...] was prepared using voice-enabled artificial intelligence software (XM Radioclinical notes). Assessment/Plan Problem List Items Addressed This [...] nor have they noticed any decrease in roof mechanic strength. The pain tends to worsen when [...] finger, difficulty with flexion of 5th finger, roof mechanic strength and sensation intact, brisk, non-tender with [...] soft tissues. IMPRESSION: No acute abnormality. WSN: [id number] Ordering Physician: Jon Baker Dictated By: ?Jean [...] soft tissues. IMPRESSION: No acute abnormality. WSN: [id number] Ordering Physician: Jon Baker Dictated By: Jean [...] consumption documented in this encounter Care Teams A And P Mechanic Relationship Specialty Start Date End Date Jon Baker PA-C [address] [place] [address] PCP - General Family Medicine 03/05/23 documented as of this encounter
== END 2024-06-24 10:56 | disposition home or self-care (01) ==
PROVIDERS: PCP Family Medicine; Visit Provider Internal Medicine Gastroenterology
DX: K52.9 Noninfective gastroenteritis and colitis, unspecified (principal)
CPT/HCPCS: 99213

== ENCOUNTER 2024-10-24 09:43 | Outpatient (AMB) | payer OTHER, SELFPAY ==
--- NOTE | 2024-10-24 09:44 | A.OFFVIS_ITS ---
Vital Signs 10/24/24 09:50 Height 6 ft 4 in Weight 220 lb 7.396 oz BMI 26.8 BP 110/76 Blood Pressure Location Lt brachial Position Sitting Pulse 89 Intake Visit Reasons: 4 mo f/u Intake Note: Greg presents in the office as a 4 month follow up. CC: States he is not having any concerns today! Public Health Internship Required: No Allergies fluoxetine (From Prozac) Allergy (Verified 10/24/24 09:52) Facial Swelling tree nuts Allergy (Mild, Uncoded 10/24/24 09:52) Unknown HPI HPI 4 mo f/u: Details: 34 yr old m here for f/u RECAP from index visit: He had trouble eating food, unless v plain, anything oily or spicy gives him cramps he was c/o nausea, vomiting feels like someone trying to rip out insides pain can be 9/10 in severity pain is epigastrium, can go into the back and lower abdomen he has been having chest pain, went to ED several times, goes into the right side and worse with nausea attacks occur every day, doesn;t really go away he can have tenesmus and incomplete evacuation he conway sbeen taking pantoprazole for 6 weeks with some relif of symptoms--feels it has helped 60% can be associated with cold sweats symptoms going on for 9 yrs he had bad anxiety takes nsaids infrequently, 2-3 times week, ibuprofen he is vaping, using weed as well EGD/[place] --12/2022 Endoscopy Findings: esophagitis Colonoscopy Findings: colonic inertia internal hemorrhoids Path:lymphoid aggregates, reflux changes in esophagus GES: nml CT: small mesenteric LN, no obstruction lactoferrin went from 15 to < 6.25! INTERIM: he has no major issues took ice cream and had some diarrhea, and nausea thereafter he is doing well with lialda, not as costly no abdominal pain trying to stop smoking- taking pack a day needs more fiber in diet --still working on it EXAM: GENERAL: The patient is well developed and nontoxic. VITAL SIGNS:see workflow HEENT: Nonicteric sclerae, PERRLA, EOMI. Oropharynx clear. Moist mucous membranes. Conjunctivae appear well perfused. No thyroid mass. CHEST: Chest wall is nontender. HEART: Regular rate and rhythm without murmurs. LUNGS: Clear to auscultation bilaterally. ABDOMEN: Soft, positive bowel sounds, nontender, no organomegaly.no flank tenderness SKIN: No rash, no excessive bruising, petechiae, or purpura. NEUROLOGIC: Cranial nerves II-XII intact without motor/sensory deficit. A/P 1/ subacute IBD, doing v well with mesalamine PLAN: 1/ cont lialda, 2/ periodic check on fecal lactoferrin and labs 3/ may have lactose intolerance as well, advised try lactose free milk --cant take almond milk--allergies [facility] Surgical History History of esophagogastroduodenoscopy (EGD) Hx of colonoscopy Hx of wisdom tooth extraction Hx of amputation Social History Alcohol intake: never Patient Tobacco Use Status: Former Tobacco user Tobacco use type: Smokeless Tobacco Substance Use Type: Marijuana Assessment & Plan Assessment & Plan (1) IBD (inflammatory bowel disease): Code(s): K52.9 - Noninfective gastroenteritis and colitis, unspecified Category: Medical Plan: as above Orders: Orders C Reactive Protein 6 Months K52.9 - Noninfective gastroenteritis and colitis, unspecified Lactoferrin, Fecal, Quant. 6 Months K51.50 - Left sided colitis without complications Complete Blood Count Auto Diff 6 Months K52.9 - Noninfective gastroenteritis and colitis, unspecified Comprehensive Met. Panel 6 Months K52.9 - Noninfective gastroenteritis and colitis, unspecified, K75.81 - Nonalcoholic steatohepatitis (RUSH) Ferritin 6 Months K52.9 - Noninfective gastroenteritis and colitis, unspecified Coding Level of Care Code Est Pt Level 3 (12250) Diagnoses IBD (inflammatory bowel disease) K52.9
[2024-10-24 09:50] VITALS: BP 110/76; PULSE 89; BMI 26.8
--- OUTSIDE RECORDS SUMMARY | 2024-10-24 10:30 | XMS_ITS | Clinical Summary ---
Author Organization [employer] Address [address] [place] [address] 7t [place] [address] Care Team Providers Care Vocational Services Specialist Name Role Phone Jon Baker PA-C Primary Care Provider [phone] Allergies Active Allergy Reactions Criticality Noted Date Comments Other Headache 12/29/2018 Other reaction(s): Hives, headache Cashew Nut Oil Headache 01/07/2023 Medications fluticasone (Flonase) 50 MCG/ACT nasal sprayIndications:P ressure sensation in both ears Administer 1-2 sprays into each nostril in the morning. Shake gently. Before first use, prime pump. After use, clean tip and replace cap. 16 g 2 3 Active hyoscyamine (Anaspaz) 0.125 MG disintegrating tablet DISSOLVE 1 TABLET ON THE TONGUE FOUR TIMES DAILY 3 Active predniSONE (Deltasone) 20 MG tabletIndications: Allergic contact dermatitis due to plant Take 2 tabs by mouth, every morning, for 5 days. 10 tablet 3 Active FLUoxetine (PROzac) 10 MG capsuleIndications :Anxiety Take 1 capsule (10 mg) by mouth in the morning. 90 capsule 3 Active Apriso 0.375 g 24 hr capsule take 4 capsules by mouth every morning 4 Active pantoprazole (ProtoNix) 40 MG EC tabletIndications: RUQ pain TAKE 1 TABLET BY MOUTH EVERY DAY BEFORE BREAKFAST. DO NOT CRUSH OR CHEW OR SPLIT 90 tablet 2 5 Active nicotine (Nicoderm CQ) 14 MG/24HR patchIndications:N icotine Dependence Place 1 patch on the skin 1 (one) time each day at the same time. Rotate sites. 28 patch 1 5 Active Active Problems Problem Noted Date Diagnosed Date [...] Overview (06/04/2023): Established with Dr. Lopez in [facility] on 03/2023 demonstrated: Mild fullness of bilateral renal collecting systems. No renal calculi, needs CT for further evaluation. 10/2022: Gastric emptying study: Normal solid food gastric emptying. Endoscopy findings: Esophagitis Colonoscopy: Internal hernias and colonic inertia. Repeat at age 47 Temporomandibular joint disorder 02/07/2022 Fear associated with healthcare 08/20/2021 Immunizations Immunization Administration Dates Next Due DTaP, Unspecified 11/21/1997, [...] 74 06/15/2024 4:02 PM EST Temperature 36.2 C (97.2 F) 06/15/2024 4:02 PM EST Respiratory Rate - - Oxygen Saturation 99% 06/15/2024 4:02 PM EST Inhaled Oxygen Concentration - - Weight 106 kg (234 lb) 06/15/2024 4:02 PM EST Height 190.5 cm (6' 3 ) 02/19/2023 9:09 AM EDT Body Mass Index 29.25 02/19/2023 9:09 AM EDT Plan of Treatment Health Maintenance Due Date Last Done Comments HIV Screening 1992 Lipid Panel 1992 Disability Screening 1992 Alcohol/Substance Use Screening 2004 Family Planning (PISQ) 10/09/2007 Hepatitis C Screening 2010 COVID-19 Vaccine ( season) 2024 Influenza Vaccine (Season Ended) 2025 Depression Screening 06/15/2025 06/15/2024, 06/15/19 SDOH Screening [...] patient's age to complete this topic Meningococcal B Vaccine Aged Out No l onger eligible based on patient's age to complete this topic Meningococcal Vaccine Aged Out No austin daisha eligible based on patient's age to complete this topic Pneumococcal Vaccine: Pediatrics (0 to 5 Years) and At-Risk Patients (6 to 49) Years Aged Out No longer eligible based on patient's age to complete this topic RSV under 20 months Aged Out No longe r eligible based on patient's age to complete this topic Rotavirus Vaccines Aged Out No longer eligible based on patient's age to complete this topic Insurance [employer] Member Subscriber Plan / Payer (Ef fective 2024-Present) Name:Greg Perez Relation to Subscriber:Self Name:Greg Perez Payer ID:Not on file Group ID:Not on file Type:Not on file Address: [address] [id number] * Guarantor: Greg Perez Account Type Relation to Patient Date of Phone Billing Address Dental Self Care Teams Vocational Services Specialist Relationship Specialty Start Date End Date Jon Baker PA-C [address] [place] [id number] PCP - General Family Medicine 03/05/23
== END 2024-10-24 10:01 | disposition home or self-care (01) ==
LOC: HO.HGI 09:43
PROVIDERS: PCP Family Medicine; Visit Provider Internal Medicine Gastroenterology
DX: K52.9 Noninfective gastroenteritis and colitis, unspecified (principal)
CPT/HCPCS: 99213

== ENCOUNTER 2025-04-10 09:00 | Outpatient (AMB) | payer SELFPAY ==
--- NOTE | 2025-04-10 09:05 | MHC.OFFVIS ---
Vital Signs 04/10/25 09:06 Height 6 ft 4 in Weight 216 lb 0.848 oz BMI 26.3 Intake Visit Reasons: 6 month follow up Allergies fluoxetine (From Prozac) Allergy (Verified 10/24/24 09:52) Facial Swelling tree nuts Allergy (Mild, Uncoded 10/24/24 09:52) Unknown HPI HPI 6 month follow up: Details: 34 yr old m here for f/u RECAP from index visit: He had trouble eating food, unless v plain, anything oily or spicy gives him cramps he was c/o nausea, vomiting feels like someone trying to rip out insides pain can be 9/10 in severity pain is epigastrium, can go into the back and lower abdomen he has been having chest pain, went to ED several times, goes into the right side and worse with nausea attacks occur every day, doesn;t really go away he can have tenesmus and incomplete evacuation he conway sbeen taking pantoprazole for 6 weeks with some relif of symptoms--feels it has helped 60% can be associated with cold sweats symptoms going on for 9 yrs he had bad anxiety takes nsaids infrequently, 2-3 times week, ibuprofen he is vaping, using weed as well EGD/[place] --12/2022 Endoscopy Findings: esophagitis Colonoscopy Findings: colonic inertia internal hemorrhoids Path:lymphoid aggregates, reflux changes in esophagus GES: nml CT: small mesenteric LN, no obstruction lactoferrin went from 15 to < 6.25! INTERIM: he denies any symptoms continues to take mesalamine no abdominal pain he conts to wrok on smoking cessation, down to 2 cigs a day EXAM: GENERAL: The patient is well developed and nontoxic. VITAL SIGNS:see workflow HEENT: Nonicteric sclerae, PERRLA, EOMI. Oropharynx clear. Moist mucous membranes. Conjunctivae appear well perfused. No thyroid mass. CHEST: Chest wall is nontender. HEART: Regular rate and rhythm without murmurs. LUNGS: Clear to auscultation bilaterally. ABDOMEN: Soft, positive bowel sounds, nontender, no organomegaly.no flank tenderness SKIN: No rash, no excessive bruising, petechiae, or purpura. NEUROLOGIC: Cranial nerves II-XII intact without motor/sensory deficit. A/P 1/ subacute IBD, doing v well with mesalamine PLAN: 1/ cont lialda, 2/ periodic check on fecal lactoferrin and labs--ordered now 3/ check hep A,B serology may need immunizations, certainly pneumovax [facility] Surgical History History of esophagogastroduodenoscopy (EGD) Hx of colonoscopy Hx of wisdom tooth extraction Hx of amputation Social History Alcohol intake: never Patient Tobacco Use Status: Former Tobacco user Tobacco use type: Smokeless Tobacco Substance Use Type: Marijuana Assessment & Plan Assessment & Plan (1) IBD (inflammatory bowel disease): Code(s): K52.9 - Noninfective gastroenteritis and colitis, unspecified Category: Medical Plan: as above Orders: Orders Hepatitis A,B,C Profile Today Z11.59 - Encounter for screening for other viral diseases Medications: Refilled mesalamine 2.4 grams (2 x 1.2 gram) PO DAILY 168 tabs 2RF Coding Level of Care Code Est Pt Level 3 (26495) Diagnoses IBD (inflammatory bowel disease) K52.9
[2025-04-10 09:06] VITALS: BMI 26.3
== END 2025-04-10 09:12 | disposition home or self-care (01) ==
LOC: HO.HGI 09:00
PROVIDERS: PCP Family Medicine; Visit Provider Internal Medicine Gastroenterology
DX: K52.9 Noninfective gastroenteritis and colitis, unspecified (principal)
CPT/HCPCS: 99213

== ENCOUNTER → 2025-04-10 09:00 | Outpatient (BNVA) | payer SELFPAY | PROVIDERS: PCP Family Medicine; Visit Provider Internal Medicine Gastroenterology | DX: K52.9 Noninfective gastroenteritis and colitis, unspecified (principal); Z87.891 Personal history of nicotine dependence | CPT/HCPCS: 99212 ==